=== PATIENT | female | born 1985 | race Caucasian/White ===

== ENCOUNTER → 2018-06-27 | Outpatient (CLI) | payer OTHER ==
[~2018-06-27] MED LIST: ACHYD1T PO; DOXY150T2 PO; FERR325C PO; IBP800T PO; PREN1TAB39 PO; [UNRECOGNIZED DRUG - CODE] TP; [UNRECOGNIZED DRUG - OTHER] TP
--- NOTE | 2018-06-27 19:15 | Diagnostic Imaging Report ---
INDICATION: Foot pain. TECHNIQUE: 3 views of the right foot CORRELATION STUDY: 01/18/2013 FINDINGS: The osseous structures of the foot are intact. Joint spaces are maintained. Alignment anatomic. Some asymmetric soft tissue prominence in the region the of the fifth MTP joint is again demonstrated but appears less severe. IMPRESSION: 1. Negative for acute findings of the foot. Dictated by: Dictated on workstation # [id number]
== END ==
LOC: RAD 18:47
PROVIDERS: ATTEND Nurse Practitioner Family
DX: M79.671 Pain in right foot (principal)
CPT/HCPCS: 73630

== ENCOUNTER 2018-11-03 21:40 | Emergency (ER) | payer OTHER ==
[~2018-11-03] VITALS: Ht 162.6 cm; Wt 54.4 kg
[2018-11-03] MEDS ORDERED: NS IV 1000 ML 1,000 ML IV SCH (21:45)
[2018-11-03] MEDS ORDERED: ONDANSETRON 4 MG/2 ML (SDV) Z0FRAN IVP ONE (21:45)
--- OUTSIDE RECORDS SUMMARY | 2018-11-03 21:46 | XMS REPORT | Continuity of Care Document ---
Author Organization Unknown Address Unknown Allergies Active Description Code Type Severity Reaction Onset Reported/Identified Relationship to Patient Clinical Status Yes No Known Drug Allergies [id number] Drug Allergy Unknown N/A 06/12/2007 Medications There is no data. Problems Date Dx Coded Attending Type Code Diagnosis Diagnosed By 01/17/2008 795.5 TUBERCULOSIS LATENT 01/17/2008 LORIE GREEN DO 795.5 TUBERCULOSIS LATENT 04/11/2008 009.1 GASTROENTERITIS INFECT 04/11/2008 LORIE GREEN DO 009.1 GASTROENTERITIS INFECT 04/16/2008 465.9 UPPER RESPIRATORY INFECTION 04/16/2008 LORIE GREEN DO 465.9 UPPER RESPIRATORY INFECTION 07/05/2008 381.81 EUSTACHIAN TUBE DYSFUNCTION 07/05/2008 LORIE GREEN DO 381.81 EUSTACHIAN TUBE DYSFUNCTION 05/07/2009 466.0 ACUTE BRONCHITIS 05/07/2009 LORIE GREEN DO 466.0 ACUTE BRONCHITIS 12/15/2009 238.2 NEOPLASM OF UNCERTAIN BEHAVIOR OF SKIN 12/15/2009 LORIE GREEN DO 238.2 NEOPLASM OF UNCERTAIN BEHAVIOR OF SKIN 12/22/2009 V58.32 SUTURE REMOVAL 12/22/2009 LORIE GREEN DO V58.32 SUTURE REMOVAL 04/17/2011 Ot 650 04/17/2011 Ot V27.0 09/06/2011 462 sore throat 09/06/2011 LORIE GREEN DO 462 sore throat 06/14/2012 Ot 625.8 FEM GENITAL SYMPTOMS NEC 06/14/2012 Ot 626.2 EXCESSIVE MENSTRUATION 06/14/2012 Ot 626.8 MENSTRUAL DISORDER NEC 12/25/2012 V70.0 ROUTINE GENERAL MEDICAL EXAMINATION AT A HEALTH CARE FACILITY 12/25/2012 LORIE GREEN DO V70.0 ROUTINE GENERAL MEDICAL EXAMINATION AT A HEALTH CARE FACILITY 01/17/2013 LORIE GREEN DO 461.9 SINUSITIS ACUTE 01/17/2013 LORIE GREEN DO 719.47 PAIN IN JOINT INVOLVING ANKLE AND FOOT 01/27/2015 Ot 285.9 01/27/2015 Ot 626.8 01/27/2015 Ot V72.63 01/27/2015 Ot V74.8 01/27/2015 ADRIÁN SANFORD PA-C Ot 461.9 01/27/2015 ADRIÁN SANFORD PA-C Ot 719.47 03/24/2015 Ot 285.9 03/24/2015 Ot 626.8 03/24/2015 Ot V72.63 03/24/2015 Ot V74.8 03/24/2015 ADRIÁN SANFORD PA-C Ot 461.9 03/24/2015 ADRIÁN SANFORD PA-C Ot 719.47 06/17/2015 Ot 285.9 06/17/2015 Ot 626.8 06/17/2015 Ot V72.63 06/17/2015 Ot V74.8 06/17/2015 ADRIÁN SANFORD-C Ot 461.9 06/17/2015 ADRIÁN SANFORD PA-C Ot 719.47 06/17/2015 JENNA LAN, PHIL Jones Ot 793.89 11/17/2016 Ot 285.9 ANEMIA NOS 11/17/2016 Ot 626.8 MENSTRUAL DISORDER NEC 11/17/2016 Ot V72.63 PRE- PROCEDURAL LABORATORY EXAMINATION 11/17/2016 Ot V74.8 SCREEN- BACTERIAL DIS NEC 11/17/2016 ADRIÁN SANFORD-C Ot 461.9 ACUTE SINUSITIS NOS 11/17/2016 ADRIÁN SANFORD-C Ot 719.47 JOINT PAIN-ANKLE 11/17/2016 PHIL WEST MD Ot 793.89 OTH (ABN) FINDINGS ON RADIOLOGICAL EXAMI 11/28/2016 Ot 285.9 ANEMIA NOS 11/28/2016 Ot 626.8 MENSTRUAL DISORDER NEC 11/28/2016 Ot V72.63 PRE- PROCEDURAL LABORATORY EXAMINATION 11/28/2016 Ot V74.8 SCREEN- BACTERIAL DIS NEC 11/28/2016 ADRIÁN SANFORD PA-C Ot 461.9 ACUTE SINUSITIS NOS 11/28/2016 ADRIÁN SANFORD PA-C Ot 719.47 JOINT PAIN-ANKLE 11/28/2016 PHIL WEST MD Ot 793.89 OTH (ABN) FINDINGS ON RADIOLOGICAL EXAMI 06/27/2018 ADRIÁN SANFORD PA-C Ot 461.9 ACUTE SINUSITIS NOS 06/27/2018 ADRIÁN SANFORD PA-C Ot 719.47 JOINT PAIN-ANKLE 06/27/2018 PHIL WEST MD Ot 793.89 OTH (ABN) FINDINGS ON RADIOLOGICAL EXAMI 06/28/2018 CARISSA CEBALLOS APRN Ot M79.671 PAIN IN RIGHT FOOT 10/04/2018 PHIL WEST MD Ot 793.89 OTH (ABN) FINDINGS ON RADIOLOGICAL EXAMI 10/04/2018 CARISSA CEBALLOS APRN Ot M79.671 PAIN IN RIGHT FOOT 10/15/2018 PHIL WEST MD Ot 793.89 OTH (ABN) FINDINGS ON RADIOLOGICAL EXAMI 10/15/2018 CARISSA CEBALLOS APRN Ot M79.671 PAIN IN RIGHT FOOT 10/17/2018 PHIL WEST MD Ot 793.89 OTH (ABN) FINDINGS ON RADIOLOGICAL EXAMI 10/17/2018 CARISSA CEBALLOS APRN Ot M79.671 PAIN IN RIGHT FOOT 10/17/2018 PHIL WEST MD Ot 793.89 OTH (ABN) FINDINGS ON RADIOLOGICAL EXAMI 10/17/2018 CARISSA CEBALLOS APRN Ot M79.671 PAIN IN RIGHT FOOT 10/19/2018 PHIL WEST MD Ot 793.89 OTH (ABN) FINDINGS ON RADIOLOGICAL EXAMI 10/19/2018 CARISSA CEBALLOS APRN Ot M79.671 PAIN IN RIGHT FOOT 11/03/2018 PHIL WEST MD Ot 793.89 OTH (ABN) FINDINGS ON RADIOLOGICAL EXAMI 11/03/2018 CARISSA CEBALLOS APRN Ot M79.671 PAIN IN RIGHT FOOT Procedures Code [place] [address] URINE DRUG SCREEN (IN-HOUSE ) 12/25/2012 Results There is no data. Encounters ACCT No. Visit Date/Time Discharge Status Pt. Type Provider Facility Loc./Unit Complaint [id number] 09/27/2013 15:11:00 09/27/2013 23:59:59 CLS Outpatient LORIE GREEN DO [id number] 12/25/2012 11:33:00 Document Registration [id number] 06/27/2018 18:47:00 06/27/2018 23:59:59 CLS Outpatient CARISSA CEBALLOS [employer] [facility] RAD INJ RT FOOT [id number] 03/24/2015 11:57:00 03/24/2015 23:59:59 CLS Outpatient PHIL WEST MD [facility] RAD 1 CM NODULE LEFT BREAST [id number] 01/18/2013 16:34:00 01/18/2013 23:59:59 CLS Outpatient ADRIÁN SANFORD PA-C [facility] RAD XRAY RIGHT FT [id number] 12/22/2012 19:40:00 12/22/2012 23:59:59 CLS Outpatient [id number] 11/05/2012 15:27:00 11/05/2012 23:59:59 CLS Outpatient [id number] 11/03/2018 21:42:00 ACT Emergency NIKKI BHATIA [employer] [facility] ER UNABLE TO HOLD ANYTHING DOWN,NAUSEA,VOMTING [id number] 01/27/2015 10:06:00 Document Registration [id number] 06/14/2012 06:08:00 Document Registration [id number] 06/12/2012 15:34:00 Document Registration
--- NOTE | 2018-11-03 21:53 | ED GI ---
General Stated Complaint: UNABLE TO HOLD ANYTHING DOWN,NAUSEA,VOMTING Source of Information: Patient Exam Limitations: No Limitations History of Present Illness Date Seen by Provider: November 03, 2018 Time Seen by Provider: 21:51 Initial Comments To ER with reports of nausea and vomiting uncontrollably since about 10 or 11 AM this morning. She denies headache, denies diarrhea, denies abdominal pains. She attributes these symptoms to "a lot of alcohol last night" that she had in celebration of graduating with her [employer]. She is otherwise healthy. Timing/Duration: 12-24 Hours Severity/Quality: Moderate Location: Generalized Abdomen Radiation: No Radiation Activities at Onset: None Associated Symptoms: Nausea/Vomiting Allergies and Home Medications Allergies Coded Allergies: No Known Drug Allergies (Verified , 06/12/07) Home Medications Dapsone 30 Gm Gel..gm., 0 TP BID, (Reported) APPLY SPARINGLY TO AFFECTED AREA(S) Doxycycline Hyclate 150 Mg Tablet.dr, 150 MG PO HS PRN, (Reported) Hydrocodone Bit/Acetaminophen 1 Tab Tablet, 1-2 TAB PO Q3HR PRN, (Reported) Ibuprofen 800 Mg Tab, 800 MG PO Q6H PRN, (Reported) [Atraline Gel] , 1 PKT TP HS, (Reported) Patient Home Medication List Home Medication List Reviewed: Yes Review of Systems Review of Systems Constitutional: see HPI; No chills, No fever EENTM: No Symptoms Reported; No Throat Pain Respiratory: No Symptoms Reported; Denies Cough, Denies Shortness of Air Cardiovascular: No Symptoms Reported; Denies Chest Pain Gastrointestinal: See HPI; Denies Abdominal Pain, Denies Constipated, Denies Diarrhea; Nausea, Vomiting Genitourinary: No Symptoms Reported Musculoskeletal: no symptoms reported Skin: no symptoms reported Psychiatric/Neurological: No Symptoms Reported Endocrine: No Symptoms Reported Hematologic/Lymphatic: No Symptoms Reported Past Tycmphk-Mhneax-Txqkpt Hx Patient Social History Recent Foreign Travel: No Contact w/Someone Who Travel: No Immunizations Up To Date Date of Influenza Vaccine: Feb 25, 2012 Past Medical History Reproductive Disorders: Yes (DUB) Physical Exam Vital Signs Capillary Refill : Height/Weight/BMI Height: '" Weight: lbs. oz. kg; BMI Method:Stated General Appearance: WD/WN, no apparent distress, thin, other (alert and oriented. Denies headache, states that Destiny typically gets her headaches will go ahead and order some Toradol.) HEENT: PERRL/EOMI, normal ENT inspection, TMs normal, pharynx normal Neck: non-tender, full range of motion Respiratory: normal breath sounds, no respiratory distress, no accessory muscle use Cardiovascular: regular rate, rhythm, no murmur Gastrointestinal: normal bowel sounds, non tender, soft; No distended, No tenderness Extremities: normal range of motion, non-tender Neurologic/Psychiatric: alert, normal mood/affect, oriented x 3 Skin: normal color, warm/dry Progress/Results/Core Measures Results/Orders My Orders Orders - NIKKI BHATIA APRN Ua Culture If Indicated (11/03/18 21:44) Hcg,Qualitative Serum (11/03/18 21:44) Cbc With Automated Diff (11/03/18 21:44) Comprehensive Metabolic Panel (11/03/18 21:44) Lipase (11/03/18 21:44) Ed Iv/Invasive Line Start (11/03/18 21:44) Ns Iv 1000 Ml (Sodium Chloride 0.9%) (11/03/18 21:45) Ondansetron Injection (Zofran Injectio (11/03/18 21:45) Ketorolac Injection (Toradol Injection) (11/03/18 22:00) Departure Impression Primary Impression: Nausea and vomiting Qualified Codes: R11.2 - Nausea with vomiting, unspecified Disposition: 01 HOME, SELF-CARE Condition: Stable Departure-Patient Inst. Decision time for Depature: 21:55 Referrals: LESLEY MACK MD (PCP) Primary Care Physician KIM HINES MD (Family) Primary Care Physician Patient Instructions: Nausea and Vomiting, Adult Add. Discharge Instructions: 1. Return to ER for any concerns 2. Nausea medication as needed 3. Follow-up with your doctor next week NIKKI BHATIA APRN November 03, 2018 21:53
[2018-11-03 21:59] LABS: BASOPHILS % (AUTO) 0 % (0-10); EOSINOPHILS % (AUTO) 0 % (0-10); HEMATOCRIT 42 % (35-52); HEMOGLOBIN 14.7 G/DL (11.5-16.0); LYMPHOCYTES # (AUTO) 1.5 X 10^3 (1.0-4.0); LYMPHOCYTES % (AUTO) 13 % (12-44); MEAN CORPUSCULAR HEMOGLOBIN 32 PG (25-34); MEAN CORPUSCULAR HGB CONC 35 G/DL (32-36); MEAN CORPUSCULAR VOLUME 90 FL (80-99); MONOCYTES # (AUTO) 0.5 X 10^3 (0.0-1.0); MONOCYTES % (AUTO) 4 % (0-12); NEUTROPHILS # (AUTO) 9.2 X 10^3 (1.8-7.8); NEUTROPHILS % (AUTO) 82 % (42-75); PLATELET COUNT 307 10^3/uL (130-400); RED CELL DISTRIBUTION WIDTH 12.2 % (10.0-14.5); WHITE BLOOD COUNT 11.2 10^3/uL (4.3-11.0)
[2018-11-03] MEDS ORDERED: KETOROLAC 30 MG/ML VIAL IVP ONE (22:00)
[2018-11-03 22:16] LABS: ALANINE AMINOTRANSFERASE 12 U/L (0-55); ALBUMIN 5.1 GM/DL (3.2-4.5); ALKALINE PHOSPHATASE 45 U/L (40-136); BUN/CREATININE RATIO 14; CARBON DIOXIDE 19 MMOL/L (21-32); CHLORIDE 107 MMOL/L (98-107); CREATININE SERUM 0.78 MG/DL (0.60-1.30); GFR ESTIMATED > 60; GLUCOSE 88 MG/DL (70-105); LIPASE 17 U/L (8-78); POTASSIUM 3.8 MMOL/L (3.6-5.0); SODIUM 141 MMOL/L (135-145)
[2018-11-03 22:51] LABS: BILIRUBIN,URINE NEGATIVE (NEGATIVE); CLARITY,URINE CLEAR; COLOR,URINE YELLOW; GLUCOSE, URINE (UA) NEGATIVE (NEGATIVE); KETONES,URINE 4+ (NEGATIVE); LEUKOCYTE ESTERASE ,URINE 1+ (NEGATIVE); NITRITE,URINE NEGATIVE (NEGATIVE); PH,URINE 5 (5-9); PROTEIN,URINE 1+ (NEGATIVE); UROBILINOGEN,URINE NORMAL (NORMAL)
[2018-11-03 22:58] LABS: BACTERIA,URINE TRACE /HPF; WBC,URINE 0-2 /HPF
[2018-11-03 23:10] VITALS: BP 106/65
== END 2018-11-03 23:11 | disposition home or self-care (01) ==
LOC: EDUNIT# 21:40 → ER 21:42
DX: R11.2 Nausea with vomiting, unspecified (principal); F10.10 Alcohol abuse, uncomplicated; Z87.448 Personal history of other diseases of urinary system
CPT/HCPCS: 36415; 80053; 81000; 83690; 84703; 85025; 96361; 96374; 96375

== ENCOUNTER → 2019-02-12 | Outpatient (CLI) | payer OTHER ==
--- NOTE | 2019-02-12 10:53 | Diagnostic Imaging Report ---
PROCEDURE: MRI right joint lower extremity without contrast. TECHNIQUE: Multiplanar, multisequence non contrast-enhanced MRI of the right lower extremity was accomplished. INDICATION: Right ankle injury in June 2018 with lateral ankle pain. COMPARISON: Radiographs from 06/27/2018 and 12/22/2012. FINDINGS: No acute fractures are seen in the right foot. Alignment appears normal. Joint spaces are preserved. No significant joint effusion is seen. The anterior and posterior syndesmotic ligaments are intact. The anterior and posterior talofibular ligaments are intact. The calcaneofibular ligament appears intact. The deltoid ligament and spring ligament are intact. The plantar fascia is not thickened. The sinus tarsi demonstrates normal fatty signal. The Achilles tendon appears normal. The flexor tendons are unremarkable. The peroneal tendons appear normal. The extensor tendons are unremarkable. No muscular atrophy or edema is seen. No soft tissue masses or fluid collections are identified. The tarsal tunnel is unremarkable. IMPRESSION: 1. No ligamentous or tendon tear is seen in the right ankle. No acute osseous abnormality seen. Dictated by: Dictated on workstation # [id number]
== END ==
LOC: RAD 08:31
PROVIDERS: ATTEND Nurse Practitioner
DX: S86.321A Laceration of muscle(s) and tendon(s) of peroneal muscle group at lower leg level, right leg, initial encounter (principal); S93.431A Sprain of tibiofibular ligament of right ankle, initial encounter
CPT/HCPCS: 73721

== ENCOUNTER 2019-02-28 13:56 | Outpatient (CLI) | payer OTHER ==
[~2019-02-28] VITALS: Ht 162.6 cm; Wt 55.0 kg
[2019-02-28] MEDS ORDERED: TRET40CR4 TP (14:04)
[2019-02-28] MEDS ORDERED: MINO50CA4 PO (14:04)
[2019-02-28] MEDS ORDERED: CLIN50GE TP (14:04)
[2019-02-28 14:07] VITALS: BP 100/66
[2019-02-28 15:02] LABS: BASOPHILS % (AUTO) 1 % (0-10); EOSINOPHILS # (AUTO) 0.2 10^3/uL (0.0-0.3); EOSINOPHILS % (AUTO) 3 % (0-10); HEMATOCRIT 38 % (35-52); HEMOGLOBIN 13.2 G/DL (11.5-16.0); LYMPHOCYTES # (AUTO) 1.9 X 10^3 (1.0-4.0); LYMPHOCYTES % (AUTO) 35 % (12-44); MEAN CORPUSCULAR HEMOGLOBIN 31 PG (25-34); MEAN CORPUSCULAR HGB CONC 35 G/DL (32-36); MEAN CORPUSCULAR VOLUME 91 FL (80-99); MEAN PLATELET VOLUME 10.6 FL (7.4-10.4); MONOCYTES # (AUTO) 0.3 X 10^3 (0.0-1.0); MONOCYTES % (AUTO) 6 % (0-12); NEUTROPHILS % (AUTO) 56 % (42-75); PLATELET COUNT 259 10^3/uL (130-400); RED CELL DISTRIBUTION WIDTH 12.3 % (10.0-14.5); WHITE BLOOD COUNT 5.4 10^3/uL (4.3-11.0)
== END 2019-02-28 16:00 | disposition home or self-care (01) ==
LOC: PREOP 13:56
PROVIDERS: ATTEND Obstetrics & Gynecology
DX: Z01.818 Encounter for other preprocedural examination (principal); N93.8 Other specified abnormal uterine and vaginal bleeding
CPT/HCPCS: 36415; 85025; 86850; 86900; 86901; 87081

== ENCOUNTER 2019-03-06 11:23 | Day surgery (SDC) | payer OTHER ==
[~2019-03-06] VITALS: Ht 162.6 cm; Wt 55.0 kg
[2019-03-06] VITALS (10 sets, daily range): BP systolic 102–124; BP diastolic 59–83
[~2019-03-06 11:23] MED LIST changes: +CLIN50GE TP; +MINO50CA4 PO; +TRET40CR4 TP
[2019-03-06] MEDS: LACTATED RINGERS 1,000 ML IV PRN ×2 (11:50→13:35)
[2019-03-06] MEDS ORDERED: MIDAZOLAM 2 MG/2 ML (VERSED) VIAL ONE (12:07)
[2019-03-06] MEDS ORDERED: GLYCOPYRROLATE 0.2 MG/ML (ROBINUL) 2 ML VIAL ONE (12:07)
[2019-03-06] MEDS ORDERED: SEVOFLURANE (ULTANE) 15 ML INHAL SOLN ONE ×7 (12:07→14:49)
[2019-03-06] MEDS ORDERED: proPOfol 200 MG/20 ML (DIPRIVAN) VIAL IV ONE (12:07)
[2019-03-06] MEDS ORDERED: DEXAMETHASONE 10 MG/ML (DECADRON) 1 ML VIAL ONE (12:07)
[2019-03-06] MEDS ORDERED: LIDOCAINE PF 2% 5 ML (XYLOCAINE) VIAL ONE (12:07)
[2019-03-06] MEDS ORDERED: ONDANSETRON 4 MG/2 ML (SDV) Z0FRAN ONE (12:07)
[2019-03-06] MEDS ORDERED: fentaNYL INJECTION 100 MCG/2 ML AMP ONE (12:07)
[2019-03-06] MEDS ORDERED: NEOSTIGMINE 3 MG/3 ML VIAL ONE (12:07)
[2019-03-06] MEDS ORDERED: ceFAZolin INJECTION 1,000 MG in WATER (STERILE) FOR INJECTION 10 ML IV ONE (12:15)
[2019-03-06] MEDS ORDERED: BUP/EPI 0.25% 1:200,000 (MARCAINE) 10 ML VIAL IJ ONE (12:37)
[2019-03-06] MEDS ORDERED: ceFAZolin INJECTION 1,000 MG ONE (12:47)
--- NOTE | 2019-03-06 13:09 | Progress Note-Pre Operative ---
Pre-Operative Progress Note H&P Reviewed The H&P was reviewed, patient examined and no changes noted. Date Seen by Provider: Mar 06, 2019 Time Seen by Provider: 13:09 Date H&P Reviewed: Mar 06, 2019 Time H&P Reviewed: 13:09 Pre-Operative Diagnosis: PHIL Reyes MD Mar 06, 2019 13:09
--- NOTE | 2019-03-06 13:10 | Progress Note-Post Operative ---
Post-Operative Progess Note Surgeon (s)/Student Services Rep (s) Surgeon PHIL WEST MD Student Services Rep: Dominique Barnard Pre-Operative Diagnosis dub/btb Post-Operative Diagnosis SAME with endometriosis and pathology pending Procedure & Operative Findings Date of Procedure 03/06/19 Procedure Performed/Findings TLH / BS/destruction and removal of endometriosis/adhesio lysis Anesthesia Type GETA Estimated Blood Loss Estimated blood loss (mL): Minimal Specimens/Packing Specimens Removed UTERUS AND TUBES/portion of left uterosacral ligament with large endometriosis implants Packing: PHIL SALDIVAR MD Mar 06, 2019 13:10
[2019-03-06] MEDS ORDERED: IBUP-1780 PO (13:14)
[2019-03-06] MEDS ORDERED: OXYC1TAB87 PO (13:14)
[2019-03-06] MEDS ORDERED: DOCU100C37 PO (13:14)
[2019-03-06] MEDS ORDERED: ONDANSETRON 4 MG/2 ML (SDV) Z0FRAN IVP PRN ×2 (13:15→15:00)
[2019-03-06] MEDS ORDERED: PROMETHAZINE INJ 25 MG/ML (PHENERGAN) AMP IM PRN (13:15)
[2019-03-06] MEDS ORDERED: WATER (STERILE) FOR INJ 10 ML BTL INJ ONE (13:15)
[2019-03-06] MEDS ORDERED: KETOROLAC 30 MG/ML VIAL IVP SCH (13:15)
[2019-03-06] MEDS ORDERED: oxyCODONE/APAP 5/325MG (PERCOCET 5) TABLET PO PRN (13:15)
[2019-03-06] MEDS ORDERED: MEPERIDINE (DEMEROL) INJ 100 MG/ML IM PRN (13:15)
--- NOTE | 2019-03-06 13:16 | Discharge Instructions ---
Discharge Instructions Discharge Medications New, Converted or Re-Newed RX: RX on Chart Patient Instructions Return to The Hospital For: DIRECTED Activity & Diet Discharge Diet: No Restrictions Activity as Tolerated: No Orders-Post D/C & Referrals Follow Up Appt: RTC ON Monday AT 930 AM FOR STAPLE REMOVAL Call to make follow up appt. for patient in 4 weeks. Activity: Rest for 24 hours, than as tolerated. Wound Care: May remove Band-Aid tomorrow. Replace as desired. Keep incisions clean and dry. Wash daily with soap and water. Please call in RX to patient pharmacy. Diet: As tolerated-Clear Liquids only if nauseated. shower or tub bathe as desired. No driving for 24 hours, no alcoholic beverages for 24 hours, and nothing per vagina (no tampons, douching, or intercourse) for 8 weeks. Patient to return to the clinic as soon as possible for: Temperature greater than 101F, Severe Pain, Foul discharge from incision or vagina, Excessive Bleeding (more than a period). PHIL WEST MD Mar 06, 2019 13:15
[2019-03-06] MEDS ORDERED: ROCURONIUM 10 MG/ML 5 ML SYRINGE IV ONE (14:28)
[2019-03-06] MEDS ORDERED: KETOROLAC 30 MG/ML VIAL ONE (14:48)
[2019-03-06] MEDS ORDERED: HYDROmorphone 2 MG/ML VIAL (DILAUDID) IV ONE (15:00)
[2019-03-06] MEDS ORDERED: KETOROLAC 30 MG/ML VIAL IVP ONE (15:00)
[2019-03-06] MEDS ORDERED: MEPERIDINE (DEMEROL) INJ 50 MG/ML IVP ONE (15:00)
[2019-03-06] MEDS ORDERED: morphine INJ 10 MG/ML 1ML (SYR OR VIAL) IVP ONE (15:00)
[2019-03-06] MEDS ORDERED: PROMETHAZINE INJ 25 MG/ML (PHENERGAN) AMP IVP ONE (15:00)
[2019-03-06] MEDS ORDERED: MEPERIDINE (DEMEROL) INJ 100 MG/ML ONE (15:59)
[2019-03-06] MEDS: D5 LR IV SOLUTION 1,000 ML IV SCH ×2 (17:40→22:17)
[2019-03-06] MEDS: KETOROLAC 30 MG/ML VIAL IVP SCH (20:12)
--- NOTE | 2019-03-06 23:16 | OPERATIVE REPORT ---
DATE OF SERVICE: 03/06/2019 PREOPERATIVE DIAGNOSIS: Dysfunctional uterine bleeding/breakthrough bleeding. POSTOPERATIVE DIAGNOSES: Dysfunctional uterine bleeding/breakthrough bleeding with pelvic adhesions and with endometriosis. OPERATIVE PROCEDURE: Total laparoscopic hysterectomy with bilateral salpingectomies as well as adhesiolysis and removal and destruction of endometriosis implants. OPERATIVE DESCRIPTION: With the patient in the supine position under satisfactory general anesthesia, the patient was prepped and draped in the usual fashion after being positioned in the dorsal lithotomy position in the [facility]. The patient was then placed in the dorsal lithotomy position. The weighted speculum placed in posterior fornix of vagina, cervix exposed and grasped anteriorly with single tooth tenaculum. Uterus sounded to 11 cm with uterine sound. The patient did have an IUD in place that was removed easily. The cervix was serially dilated with Addi dilators and a Shakila II manipulator was placed using a 6 mm x 8 cm uterine probe and a 30 mm colpotomy ring. Sutures of #1 Vicryl placed at 3 and 9 o'clock position of the cervix to affix the uterus to the manipulator. The patient was brought in low dorsal lithotomy position and an 8 mm incision was made 4 cm superior to the umbilicus. Veress needle was placed through that incision into the abdominal cavity and correct placement confirmed with a water drop test. The abdomen was insufflated with 2.4 liters of carbon dioxide. Then, the Veress needle was removed and an 8 mm laparoscopic port placed. The laparoscope was introduced. The abdominal wall transilluminated and 8 mm ports were placed 9 cm lateral to the umbilicus just above the level of umbilicus. All three port sites were infiltrated with 0.25% Marcaine with epinephrine prior to incision. The patient was now placed in Trendelenburg allowing the bowel to spill mostly above the pelvis. Some of the bowel was adherent due to adhesions and remained down in the pelvis. We dealt with that later. The da Erma column was then advanced onto the patient and docked and operative instrument placed in right and left lateral ports and I retired to the Mogujie Erma console for the procedure. At the procedure using the vessel sealer on the right and a bipolar fenestrated grasper on the left, the pelvis was first examined. Both fallopian tubes had paratubal cysts, right side was greater in size than the left. Both fallopian tubes appeared to have endometriosis on them. Both ovaries appeared relatively normal. There were some follicular cysts on both ovaries. There was endometriosis implants on both uterosacral ligaments and in the ovarian fossa bilaterally. There were number of implants on the bladder dome as well. The uterus was somewhat mottled in appearance consistent with adenomyosis. The appendix was identified. It was a normal vermiform appendix and that was left in situ. The cecum was adherent to the anterior abdominal wall at the terminus of the right paracolic gutter. The adhesions on the right of the cecum were first taken free to allow that to swing completely above the pelvis and then adhesions of the sigmoid to the left pelvic brim and left IP ligaments were freed, allowing full access to the left pelvic sidewall. Both ureters were now seen to peristalse and were well away from the area of the intended dissection. The right fallopian tube was grasped and elevated using the vessel sealer. The mesosalpinx was clamped, cauterized and divided. This was continued until the uteroovarian pedicle could be clamped, cauterized and divided in the round ligament, the broad ligament and eventually down onto the cardinal ligament. Same procedure performed on the left, allowing for removal of both fallopian tubes with conservation of both ovaries. The anterior lower uterine segment peritoneum was then exposed and using a bipolar fenestrated grasper on the left and a monopolar shear on the right, the anterior lower uterine segment peritoneum was divided allowing the bladder to be dissected down off the lower uterine segment. Colpotomy incision was then started at the 12 o'clock position onto the colpotomy ring that was continued circumferentially until the entire colpotomy ring was exposed. The blood vessels that were encountered along the way were cauterized to seal them. Once the uterus was free, it was extracted through the vagina with the tubes still attached. The vaginal cuff was closed with a single suture V-Loc barbed suture starting first from the right angle and continuing all the way across the left angle taking care to ensure inclusion of the uterine vessel, pedicles with the first and last stitches. Hemostasis was complete. Good reapproximation was achieved. There was a large endometriosis implant on the left uterosacral ligament. This was grasped and elevated and then using the monopolar shear on the right the endometriosis implant was resected. There were additional implants in both ovarian fossa in the cul-de-sac and onto the bladder down. These were all touched with electrocautery to destroy them. Care was taken to ensure no injury to bowel, bladder, ureters or other adjacent structures. With the endometriosis destroyed with no bleeding and no remaining abnormal pathology, the procedure was terminated. The operative instruments were removed under direct vision as were the ports. The abdomen was evacuated the insufflating gas in the process of removing the ports. The skin incisions were closed with dilcia. A speculum replaced in the vagina. The vaginal cuff was examined. It was completely reapproximated and completely hemostatic. Sponge and needle counts were now correct. Estimated blood loss was minimal. The patient tolerated the procedure well and was uneventfully awakened from her general anesthesia and transferred to the recovery room in stable condition. Job ID: [id number] DocumentID: [id number] Dictated Date: 03/06/2019 14:42:44 Transportation Driver Date: 03/06/2019 23:16:22 Dictated By: PHIL WEST MD
[2019-03-07 00:45] VITALS: BP 99/65
[2019-03-07] MEDS: KETOROLAC 30 MG/ML VIAL IVP SCH (02:44)
[2019-03-07 04:45] VITALS: BP 92/59
--- NOTE | 2019-03-07 07:54 | Progress Note ---
Standard Progress Note Progress Notes/Assess & Plan Date Seen by a Provider: Mar 07, 2019 Time Seen by a Provider: 07:53 Progress/Assessment & Plan This patient is without complaint. She is ambulating, voiding, tolerating oral intake well has good pain control. Patient denies chest pain, denies shortness of breath, denies nausea or vomiting, denies headache. Vital Signs Date Time Temp Pulse Resp B/P (MAP) Pulse Ox O2 Delivery O2 Flow Rate FiO2 03/07/19 04:45 36.2 82 16 92/59 99 Room Air 03/07/19 00:45 37.2 87 16 99/65 99 Room Air 03/06/19 20:23 Room Air 03/06/19 20:12 36.7 86 16 103/70 100 Room Air 03/06/19 20:12 100 Room Air 03/06/19 16:10 100 Room Air 03/06/19 16:00 37.2 81 14 104/59 100 Room Air 03/06/19 15:47 Room Air 03/06/19 15:47 36.3 16 100 Room Air 03/06/19 15:45 Room Air 03/06/19 15:40 14 100 Room Air 03/06/19 15:30 15 100 Room Air 03/06/19 15:30 Room Air 03/06/19 15:20 14 100 Room Air 03/06/19 15:15 100 Room Air 03/06/19 15:15 OxyMask 2 03/06/19 15:10 12 100 OxyMask 4 03/06/19 15:00 20 100 OxyMask 4 03/06/19 15:00 OxyMask 4 03/06/19 14:50 36.4 15 100 OxyMask 6 03/06/19 14:50 OxyMask 6 03/06/19 11:30 36.8 98 16 124/83 100 Room Air I & O 03/07/19 07:00 Intake Total 4380 ml Output Total 2090 ml Balance 2290 ml Vital signs are stable. Patient is afebrile. The abdomen is benign. The surgical incision dressings are clean dry and intact. Extreme show no clubbing cyanosis. There is no Homans sign. Assessment and plan postoperative day number 1 doing well. Plan is for [facility] with follow-up in clinic Final Diagnosis Dysfunctional uterine bleeding/breakthrough bleeding/endometriosis PHIL WEST MD Mar 07, 2019 07:54
[2019-03-07 08:00] VITALS: BP 95/63
[2019-03-07] MEDS ORDERED: IBUPROFEN 800 MG (MOTRIN) TAB PO ONE (08:07)
[2019-03-07] MEDS ORDERED: DOCUSATE SODIUM 100 MG (COLACE) CAP PO SCH (09:00)
[2019-03-07 11:10] VITALS: BP 95/63
[2019-03-07] MEDS ORDERED: IBUPROFEN 800 MG (MOTRIN) TAB PO SCH (15:00)
--- NOTE | 2019-03-07 17:31 | Anesthesia-General Post-Op ---
General Post Op Complications Complications None Follow Up Care/Instructions Patient Instructions None needed. Anesthesia/Patient Condition Patient Condition Chart reviewed. No apparent anesthetic complications noted. Patient has been discharged to home. PHOEBE SINGH CRNA Mar 07, 2019 17:30
== END 2019-03-07 11:10 | disposition home or self-care (01) ==
LOC: SDC 11:23 → WS 15:47 → SDC 03-07 11:10
PROVIDERS: ATTEND Obstetrics & Gynecology
DX: N72 Inflammatory disease of cervix uteri (principal); N80.3 Endometriosis of pelvic peritoneum; N83.8 Other noninflammatory disorders of ovary, fallopian tube and broad ligament; N93.8 Other specified abnormal uterine and vaginal bleeding; N73.6 Female pelvic peritoneal adhesions (postinfective); D64.9 Anemia, unspecified; G43.909 Migraine, unspecified, not intractable, without status migrainosus; Z87.891 Personal history of nicotine dependence; Z79.899 Other long term (current) drug therapy
CPT/HCPCS: 36415; 84703; 86850; 86900; 86901; 88305; 88307; 94664

== ENCOUNTER 2021-01-20 09:00 | Outpatient (RCR) | payer OTHER ==
[~2021-01-20 09:00] MED LIST changes: +DOCU100C37 PO; +IBUP-1780 PO; +OXYC1TAB87 PO
== END 2021-04-20 | disposition still patient (30) ==
LOC: CARD 09:00
PROVIDERS: ATTEND Family Medicine
DX: I49.8 Other specified cardiac arrhythmias (principal); R06.09 Other forms of dyspnea; R00.2 Palpitations

== ENCOUNTER → 2021-12-03 | Outpatient (CLI) | payer BC, OTHER ==
--- NOTE | 2021-12-03 12:47 | Diagnostic Imaging Report ---
INDICATION: Upper back pain. TIME OF EXAM: 12:27 PM FINDINGS: AP lateral views of the thoracic spine were obtained. Curvature and alignment is normal. Vertebral body heights are well-maintained. Pedicles and paraspinous line are intact. No fractures are seen. IMPRESSION: No acute abnormality is detected. Dictated by: Dictated on workstation # [id number]
== END ==
LOC: RAD 12:09
PROVIDERS: ATTEND Family Medicine
DX: M54.6 Pain in thoracic spine (principal)
CPT/HCPCS: 72072

== ENCOUNTER → 2021-12-28 | Outpatient (CLI) | payer BC ==
--- NOTE | 2021-12-28 16:53 | Diagnostic Imaging Report ---
PROCEDURE: CT thoracic spine without contrast. TECHNIQUE: Multiple axial computerized tomography images were obtained from the base of the thoracic spine to the vertex without intravenous contrast. Auto Exposure Controls were utilized during the CT exam to meet ALARA standards for radiation dose reduction. INDICATION: 36-year-old female, thoracic spine region pain. No known injury, just pain. CORRELATION STUDY: None FINDINGS: There is minimal rightward curvature the thoracic spine with alignment otherwise anatomic. Thoracic vertebral body heights and disc spaces overall are maintained. Posterior elements intact and normal alignment. No high degree osseous encroachment and/or narrowing of the canal and/or foramina. The paraspinal soft tissues appearing unremarkable. Visualized posterior ribs unremarkable. There are a few faint wispy-like opacities in the visualized posterior lung arias. Largest measuring up to approximately 6 mm in size. IMPRESSION: 1. Very mild rightward curvature thoracic spine. Otherwise unremarkable examination of the thoracic spine. 2. A few faint wispy-like opacities in the lung arias. Nonspecific could be reflective component of inflammatory infectious etiology. However, some these do have a slightly nodular appearance. Correlation with dedicated CT imaging of the chest is recommended. Dictated by: Dictated on workstation # [id number]
== END ==
LOC: RAD 12:15
PROVIDERS: ATTEND Family Medicine
DX: M54.6 Pain in thoracic spine (principal); M43.8X4 Other specified deforming dorsopathies, thoracic region; J98.4 Other disorders of lung
CPT/HCPCS: 72128

== ENCOUNTER → 2023-04-20 | Outpatient (CLI) | payer BC ==
--- NOTE | 2023-04-20 16:29 | Diagnostic Imaging Report ---
INDICATION: LEFT FOOT PAIN COMPARISON: None. FINDINGS: Three views of the left foot demonstrate no acute fracture or dislocation. There are no focal osseous lesions. There is no soft tissue swelling. Joint spaces are well maintained. No radiopaque foreign bodies are seen. IMPRESSION: No acute fractures or dislocations of the left foot. Dictated by: Dictated on workstation # [id number]
== END ==
LOC: RAD 13:18
PROVIDERS: ATTEND Family Medicine
DX: M79.672 Pain in left foot (principal)
CPT/HCPCS: 73630